=== PATIENT | female | born 2000 | race Caucasian/White ===

== ENCOUNTER 2020-11-01 09:50 | Emergency (ER) | payer OTHER ==
[~2020-11-01] VITALS: Ht 170.2 cm; Wt 59.0 kg
[~2020-11-01 09:50] MED LIST: NOHOMEMEDICATIONS
[2020-11-01 10:40] VITALS: BP 110/70
== END 2020-11-01 10:41 | disposition home or self-care (01) ==
LOC: M.ERS 09:50
DX: S81.852A Open bite, left lower leg, initial encounter (principal); Z90.89 Acquired absence of other organs; W54.0XXA Bitten by dog, initial encounter; Y93.89 Activity, other specified; Y92.89 Other specified places as the place of occurrence of the external cause; Y99.8 Other external cause status